=== PATIENT | female | born 1980 | race Caucasian/White ===

== ENCOUNTER 2019-05-10 08:28 | Inpatient (IN) ==
[2019-05-10 09:42] LABS: URINE SOURCE CLEAN CATCH
[2019-05-10 09:50] LABS: BASO# 0.02 X1000 (0.0-0.2); BASO% 0.1 % (0.0-0.8); HEMATOCRIT 44.6 % (37.0-47.0); HEMOGLOBIN 15.1 g/dL (12.0-16.0); IMM GRAN# 0.05 X1000 (0.0-0.04); IMM GRAN% 0.2 % (0.0-0.5); LYMPH# 1.15 X1000 (1.2-3.4); LYMPH% 5.6 % (20.5-51.1); MCH 32.6 PG (27-31); MCHC 33.9 g/dL (33-37); MCV 96.3 FL (81-99); MONO# 0.65 X1000 (0.11-0.59); MONO% 3.2 % (1.7-9.3); MPV 10.4 FL (7.4-10.4); NEUT# 18.65 X1000 (1.4-6.5); NEUT% 90.9 % (42.2-75.2); PLT 410 X1000 (130-400); RBC 4.63 XMIL (4.2-5.4); RDW 12.3 % (11.5-14.5); WBC 20.52 X1000 (4.8-10.8)
[2019-05-10 09:55] LABS: BILIRUBIN URINE NEGATIVE (NEGATIVE); BLOOD URINE NEGATIVE (NEGATIVE); COLOR YELLOW; GLUCOSE URINE NEGATIVE (NEGATIVE); KETONE URINE 40 mg/dL (NEGATIVE); LEUKOCYTES URINE NEGATIVE (NEGATIVE); NITRITE URINE NEGATIVE (NEGATIVE); PH URINE 8.5; PROTEIN URINE TRACE mg/dL (NEGATIVE); SP GRAVITY URINE 1.024; TURBIDITY URINE CLEAR (CLEAR); UROBILINOGEN URINE NORMAL (NORMAL)
[2019-05-10 09:57] LABS: UR EPITHELIAL CELLS <10 /HPF (<10); URINE BACTERIA NEGATIVE /HPF; URINE WBC <10 /HPF (<10)
--- NOTE | 2019-05-10 10:05 | PROVIDER DOCUMENTATION ---
HPI-Abdominal Pain/GI Problem - General Chief Complaint: Abdominal Pain Stated Complaint: RT FLANK PAIN Time Seen by Provider: 05/10/19 08:54 Source: patient Allergies/Adverse Reactions: Patient Allergies Allergy/AdvReac Type Severity Reaction Status Date / Time Penicillins Allergy RASH Verified 05/10/19 09:45 Home Medications: Home Medication List Medication Instructions Recorded Confirmed Last Taken Type Levothyroxine [Synthroid] 50 microgm PO DAILY 05/10/19 05/10/19 Unknown History Sertraline [Zoloft] 50 mg PO DAILY 05/10/19 05/10/19 Unknown History - History of Present Illness-ABD Nature of Presenting Problems: Patient is a 39yo F who presents with complaints of sudden onset RLQ abdominal pain, nausea, and vomiting x1 that awoke her from sleep at 0100 this morning. Reports she attempted to have a BM hoping to improve her pain, but it did not. States 2 softs BMs this AM. Denies fever, dysuria, vaginal discharge, or hematuria. Reports 1 past laparoscopic exploratory abdominal surgery. Non-toxic in appearance. Abdominal Pain Onset Location: reports: RLQ Pain Radiation: reports: no radiation Quality of Pain: reports: pressure Severity in ED: reports: moderate Onset/Duration: reports: abrupt, this afternoon Timing: reports: still present Activities at Onset: reports: sleep Exposure to sick contacts?: No Modifying Factors: improves with: nothing. worse with: movement, palpation Associated Symptoms: reports: nausea, vomiting (x1). denies: back/neck pain, chest pain, constipation, diarrhea, fever/chills, genitourinary problems, shortness of breath Last BM: this morning (x2 soft) Dark Stools Present?: reports: none noticed Rectal Bleeding: reports: none # of Diarrhea Episodes: 0 # of Vomiting Episodes: 1 Emesis Description: reports: clear, other Bruising or Bleeding Gums?: No Similar Symptoms Previously?: No Recently seen or treated by another doctor?: No Review of Systems - Adult - REVIEW OF SYSTEMS - ADULT Constitutional: reports: no symptoms reported. denies: chills, fever Eyes: reports: no symptoms reported Ears, Nose, Mouth & Throat: reports: no symptoms reported Cardiovascular: reports: no symptoms reported. denies: chest pain, palpitations Respiratory: reports: no symptoms reported. denies: cough, shortness of breath Gastrointestinal: reports: see HPI, abdominal pain, nausea, vomiting. denies: diarrhea Genitourinary: reports: no symptoms reported. denies: dysuria, discharge Musculoskeletal: reports: no symptoms reported. denies: back pain Integumentary: reports: no symptoms reported Neurological: reports: no symptoms reported Psychiatric: reports: no symptoms reported Endocrine: reports: no symptoms reported Past History - Adult - PAST MEDICAL HISTORY-ADULT Review of Records: reports: Nursing Assessment Review, Medications Reviewed, Social history reviewed & non-contributory. - IMMUNIZATION STATUS Childhood Immunizations: See Nurse Assessment Flu Vaccine: See Nurse Assessment - FAMILY HISTORY Family History: reviewed, not pertinent - SOCIAL HISTORY Smoking: denies, non-smoker Physical Exam-General - PHYSICAL EXAM-ADULT Initial Vital Signs Reviewed: Yes - CONSTITUTIONAL General Appearance: alert, mild distress. negative: lethargic, slow to respond, obtunded - EYES Eyes: PERRL/EOMI, pink conjunctivae. negative: EOM palsy, scleral icterus - HEAD, EARS, NOSE, MOUTH & THROAT HENMT: normocephalic/atraumatic, moist mucous membranes. negative: angioedema - NECK Neck: full range of motion, supple, normal inspection - RESPIRATORY Respiratory: chest non-tender, lungs clear, normal breath sounds, no pleuratic chest pain, no respiratory distress, no accessory muscle use. negative: crac kles, rales, rhonchi, stridor, wheezing - CARDIOVASCULAR Cardiovascular: no gallop, tachycardia (104) - GASTROINTESTINAL (ABDOMEN) Abdominal Exam: soft, no pulsatile mass, abnormal bowel sounds (hypoactive x4), tenderness (RLQ), McBurney's point tenderness, Rovsing's sign. negative: guarding, rigid - MUSCULOSKELETAL Back Exam: normal inspection Extremity: normal range of motion, non-tender, normal gait, normal inspection - SKIN Integumentary: normal color, warm/dry. negative: cyanosis, jaundice, pallor - NEUROLOGIC Neurologic: grossly normal. negative: aphasia, EOM palsy - PSYCHIATRIC Psych/Mental Status: normal mood/affect, normal thought content, normal thought process, oriented x 3 Progress - PLAN OF CARE/RESULTS Progress/Plan/Lab Results: Vital Signs - 8 hr 05/10/19 08:33 Temperature 97.6 F Pulse Rate 104 H Respiratory Rate 20 Blood Pressure 130/90 O2 Sat by Pulse Oximetry 99 Bedside Urine ED: Urine Bedside Start: 05/10/19 08:56 Freq: ORDERED Status: Active Protocol: Activity Type Activity Date Activity User E-Sign Co-Sign Detail Recorded Client Recorded Date Recorded By Document 05/10/19 09:37 [id number] 05/10/19 09:38 [id number] 05/10/19 09:37 Point of Care [Bedside Point of Care] -Lot # [id number] - Results Negative -Control Line Visible? Yes -Additional Comment EXP: 10/10/20 Laboratory Results - last 24 hr 05/10/19 05/10/19 09:15 09:28 WBC 20.52 H RBC 4.63 Hgb 15.1 Hct 44.6 MCV 96.3 MCH 32.6 H MCHC 33.9 RDW Std Deviation 12.3 Plt Count 410 H MPV 10.4 Immature Gran % (Auto) 0.2 Neut % (Auto) 90.9 H Lymph % (Auto) 5.6 L [place] % (Auto) 3.2 Eos % (Auto) 0.0 Baso % (Auto) 0.1 Immature Gran # (Auto) 0.05 H Neut # (Auto) 18.65 H Lymph # (Auto) 1.15 L [place] # (Auto) 0.65 H Eos # (Auto) 0.00 Baso # (Auto) 0.02 Urine Source CLEAN CATCH Urine Color YELLOW Urine Turbidity CLEAR Urine pH 8.5 Ur Specific [place] 1.024 Urine Protein TRACE A Ur Glucose (Stick) NEGATIVE Ur Ketones (Stick) 40 A Urine Blood NEGATIVE Urine Nitrite NEGATIVE Urine Bilirubin NEGATIVE Urobilinogen Dipstick NORMAL Urine Leukocytes NEGATIVE Urine WBC (Auto) <10 Urine RBC (Auto) 10-20 A U Epithel Cells (Auto) <10 Urine Bacteria (Auto) NEGATIVE Orders Category Date Time Status ED: Urine Bedside ORDERED Care 05/10/19 08:56 Active Saline Loc NOW Care 05/10/19 08:55 Active CBC WITH ELECTRONIC DIFF [HEME] Stat Lab 05/10/19 09:28 Completed COMPREHENSIVE METABOLIC PANEL [CHEM] Stat Lab 05/10/19 09:28 Received LIPASE [CHEM] Stat Lab 05/10/19 09:28 Received URINALYSIS W/POSS RFLX CULT [URINALYSIS] Stat Lab 05/10/19 09:[address] Casarez recommends Cefepime as patient is Penicillin allergic. Lab results, imaging results, need for admission/surgery discussed with patient who agrees with and verbalizes understanding. Result Diagrams: 05/10/19 09:28 05/10/19 09:28 - EKG 1 Time of EKG reading by physician:: 12:02 EKG Read and Signed by:: Diaz Casarez EKG Interpretation (*Must complete 3 of following elements*): Normal Rate: 67 Rhythm: NSR [place]: normal QRS: normal GA Interval: normal ST Wave: normal - CT/MRI 1 CT Study: Abdomen, Pelvis Impression: See EMR Report ([facility] - [address] [facility], [address] [address] [facility] - [address] [place] [address] Department of Imaging Patient: BALTAZAR BUSTAMANTE AADM Date: 05/10/19MR#: [id number] : 1980ADM Status: REG [facility]#: [id number] Age/Sex: 39/FRoom/Bed: Loc: ED Ordering Physician: Sharmin Kilgore Family Physician: Armando Larios Reason for Procedure: RLQ abdominal pain; leukocytosis Signed CT ABD/PELVIS W/IV CONT ONLY - 05/10/2019 INDICATION: RLQ abdominal pain; leukocytosis COMPARISON: None FINDINGS: The lung bases are clear and the heart size is normal. The liver, gallbladder, spleen, pancreas, adrenals, and kidneys are normal. There is diffuse enlargement of the vermiform appendix which measures over 12 mm. There is also some slight surrounding inflammatory stranding. No free air or free fluid. No bowel obstruction. No significant constipation. There is an IUD in the uterus in good position. Urinary bladder and rectum are normal. Bones are intact and well mineralized. IMPRESSION: Findings compatible with acute appendicitis. No complication. This report was discussed with Sharmin Isabel on 05/10/2019 at 11:55 AM and was readback. This exam was performed using automated exposure control, adjustment of mA or kV according to patient size, and/or use of iterative reconstruction technique Electronically signed by Chris Whitley 05/10/2019 11:56 AM 05/10/19 1156 Interpreting Physician: Chris Whitley MD Dictated Date/Time: 05/10/19 1153 cc: Sharmin Isabel; Armando Larios) - CONSULTS/PCP/HOSPITALIST Notification #1 *Consult/PCP/Hospitalist*: Renetta Surgeon Time Discussed: 12:00 (Dr. Casarez spoke with) Reason/Comments: Acute appendicitis Consult Disposition: Will see in ED, Admit Departure - Departure Date of Disposition Decision: 05/10/19 Time of Disposition Decision: 12:00 DIAGNOSIS: Acute appendicitis Qualifiers: Acute appendicitis type: unspecified acute appendicitis type Qualified Code(s): K35.80 - Unspecified acute appendicitis Disposition: ADMITTED INPATIENT 09 Certified Medical Emergency: Emergent Condition: Stable - Critical Care Note This patient required my direct & personal management of CC.: No Attestation - Physician/ GRACIE Attestation Patient care was provided by Advanced Practice Provider:: Yes Advanced Practice Provider:: Sharmin Isabel Advanced Practice Provider documentation review:: The Mid-level provider documentation, treatment plan and medical decision making was reviewed by the physician who agrees with all treatment and medical decision making by the P. The physician spent face to face time with patient:: No Advanced Practice Provider documentation review:: Supervising physician onsite and consulted in the evaluation and care of this patient. The physician did not have a face to face encounter with the patient.
[2019-05-10] MEDS ORDERED: NS 1,000 ML IV ONE ×2 (10:06→11:59)
[2019-05-10] MEDS ORDERED: TORADOL IV ONE (10:06)
[2019-05-10] MEDS ORDERED: ZOFRAN IV ONE (10:09)
[2019-05-10 10:18] LABS: AGAP 15; ALB/GLOB RATIO 1.4; ALBUMIN 4.4 g/dL (3.5-5.0); ALKALINE PHOSPHATASE 50 U/L (32-104); BUN 13 mg/dL (8-22); CALCIUM 9.3 mg/dL (8.8-10.2); CHLORIDE 100 mmol/L (98-107); COSMO 281; CREATININE 0.8 mg/dL (0.5-0.9); ESTIMATED GFR > 60; GLUCOSE 120 mg/dL (70-104); GOT 16 U/L (10-30); GPT 16 U/L (10-36); LIPASE 12 U/L (13-60); POTASSIUM 3.8 mmol/L (3.5-5.1); SODIUM 140 mmol/L (136-145); TCO2 25 mmol/L (25-35); TOTAL BILIRUBIN 0.52 mg/dL (0.20-1.00); TOTAL PROTEIN 7.5 g/dL (6.3-8.3)
[2019-05-10] MEDS ORDERED: MAXIPIME 1 GM in NS 50 ML IV ONE (11:58)
[2019-05-10] MEDS ORDERED: MORPHINE IV ONE (11:58)
--- NOTE | 2019-05-10 11:58 | Diag Imaging Result Doc PS360 ---
CT ABD/PELVIS W/IV CONT ONLY - 05/10/2019 INDICATION: RLQ abdominal pain; leukocytosis COMPARISON: None FINDINGS: The lung bases are clear and the heart size is normal. The liver, gallbladder, spleen, pancreas, adrenals, and kidneys are normal. There is diffuse enlargement of the vermiform appendix which measures over 12 mm. There is also some slight surrounding inflammatory stranding. No free air or free fluid. No bowel obstruction. No significant constipation. There is an IUD in the uterus in good position. Urinary bladder and rectum are normal. Bones are intact and well mineralized. IMPRESSION: Findings compatible with acute appendicitis. No complication. This report was discussed with Sharmin Isabel on 05/10/2019 at 11:55 AM and was readback. This exam was performed using automated exposure control, adjustment of mA or kV according to patient size, and/or use of iterative reconstruction technique Electronically signed by Chris Whitley 05/10/2019 11:56 AM
--- NOTE | 2019-05-10 13:07 | EKG Report ---
Test Performed on : 05/10/2019 12:48:16 PM Test Reason : Pre-op Blood Pressure : / mmHG Vent. Rate : 067 BPM Atrial Rate : 067 BPM P-R Int : 172 ms QRS Dur : 086 ms QT Int : 410 ms P-R-T Axes : -21 025 004 degrees QTc Int : 433 ms Normal sinus rhythm. Normal ECG No previous ECGs available Unconfirmed Result
[2019-05-10 13:25] LABS: INR 0.93; PROTIME 12.5 Seconds (11.0-16.0)
[2019-05-10 13:26] LABS: PTT 26.4 Seconds (22.3-41.8)
[2019-05-10] MEDS ORDERED: FENTANYL ONE (15:55)
[2019-05-10] MEDS ORDERED: DIPRIVAN 1% ONE (15:55)
[2019-05-10] MEDS ORDERED: QUELICIN (DOSE) ONE (15:55)
[2019-05-10] MEDS ORDERED: ROBINUL ONE ×2 (15:55→18:22)
[2019-05-10] MEDS ORDERED: XYLOCAINE-MPF 2% ONE ×2 (15:55→18:24)
[2019-05-10] MEDS ORDERED: ZEMURON ONE (15:55)
[2019-05-10] MEDS ORDERED: VERSED ONE ×2 (15:56→17:07)
[2019-05-10] MEDS ORDERED: ZOFRAN ONE (17:16)
[2019-05-10] MEDS ORDERED: DECADRON ONE (17:16)
[2019-05-10] MEDS ORDERED: LR 1,000 ML ONE (17:28)
[2019-05-10] MEDS ORDERED: SENSORCAINE 0.5%-EPI 1:200,000 ONE (17:28)
[2019-05-10] MEDS ORDERED: LEVAQUIN 500 MG/D5W 500 MG/100 ML IVPB ONE (17:29)
[2019-05-10] MEDS ORDERED: NEOSTIGMINE ONE (17:52)
[2019-05-10] MEDS ORDERED: DEMEROL ONE (18:43)
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
--- NOTE | 2019-05-10 21:21 | OPERATIVE NOTE ---
PROCEDURE DATE: 05/10/2019 PREOPERATIVE DIAGNOSIS: Acute appendicitis without rupture. POSTOPERATIVE DIAGNOSIS: Acute appendicitis without rupture. PRINCIPAL PROCEDURE: Laparoscopic appendectomy. SURGEON: Lelo Jackson MD. ANESTHESIA: General in addition to local anesthetic. ESTIMATED BLOOD LOSS: 50 mL. DRAINS: None. INDICATIONS: Jenn Cabrera is a 39-year-old white female who had a 12-18 hour history of abdominal pain localized to her right lower quadrant. She presented to our emergency department. Part of her evaluation was a CT scan of her abdomen which suggested acute appendicitis as did her exam, and we were asked to see her. FINDINGS: The appendix was acutely inflamed, swollen but not ruptured there was no free intra- abdominal infection. No other intra-abdominal pathology was noted. We felt we did the operation safely. DESCRIPTION OF PROCEDURE: The patient was brought to the operating room, placed supine, received general anesthesia and was intubated. A Villafana catheter tube was placed. Her abdomen was prepped and draped in a sterile field. She received IV Levaquin prior to surgery. We made a small incision below her umbilicus with a 15 blade scalpel. A Veress needle was introduced intra- abdominally. Pneumoperitoneum was established. I used step trocars. I placed 11 mm step trocar through this incision into the abdomen. The camera was placed through this port, and the abdomen was explored for injury, there was none. I placed 2 other trocars under direct vision the camera. I placed a 12 mm trocar through a small transverse incision in the suprapubic area under direct vision of the camera and I placed a 5 mm trocar right lower quadrant of the abdomen, again under direct vision the camera. The camera was at the umbilicus. I used a grasper and dissector at our lower trocar sites. The appendix was easily visualized and mobilized. I used a gold load Endo- ROLAND to come across the appendiceal mesentery. I used a reload of this Endo ROLAND to come across the base of the appendix. I used an endobag to remove the appendix through our 12 mm port site. I placed the port back through this incision and the area of operation was thoroughly inspected, irrigated, and the irrigation was removed with suction. There was no evidence of bleeding and we were happy with the appendiceal stump. No drains were left. All trocars removed under direct vision the camera. The pneumoperitoneum was allowed to dissipate. I used [id number] 2-0 Vicryl stitches to reapproximate the fascia at the umbilicus and suprapubic incisions. All skin was closed with 4-0 Monocryl subcuticular stitches. Steri-Strips were applied. Plans are to remove her Villafana catheter tube, send her to recovery room and she will be admitted overnight. cc: Lelo Jackson MD
[2019-05-11] MEDS ORDERED: SODIUM CHLORIDE 0.9% INJ PRN (00:04)
[2019-05-11] MEDS ORDERED: PHENERGAN IV PRN (00:04)
[2019-05-11] MEDS ORDERED: LR 1,000 ML IV SCH (00:15)
[2019-05-11] MEDS: NORCO-10 PO PRN ×2 (01:05→11:48)
[2019-05-11] MEDS: MOTRIN PO SCH ×2 (06:24→13:54)
[2019-05-11] MEDS: TYLENOL PO SCH ×2 (10:26→16:10)
--- NOTE | 2019-05-11 14:25 | DISCHARGE SUMMARY ---
ADMISSION DATE: 05/10/2019 DISCHARGE DATE: 05/11/2019 ADMITTING DIAGNOSIS: Acute appendicitis without rupture. DISCHARGE DIAGNOSIS: Acute appendicitis without rupture. PRINCIPAL PROCEDURE: Laparoscopic appendectomy 05/10/2019. DISCHARGE DIET: Liquids. DISCHARGE DISABILITIES: Full. DISCHARGE MEDICATIONS: She is to return to her home medications. DISCHARGE DISPOSITION: She will return to our outpatient office in 7 to 10 days for followup. HOSPITAL COURSE: Ms. Jenn Cabrera is a 39-year-old, white female who presented to our emergency department yesterday with a 12-18 hour history of abdominal pain which had localized to her right lower quadrant. As part of her evaluation, she underwent a CT scan of her abdomen and pelvis which suggested acute appendicitis, as did her exam. Later that afternoon she went to the operating room, underwent a laparoscopic appendectomy for acute appendicitis without rupture. We felt the operation went well. No drains were left. After surgery she went to the recovery room and then was hospitalized on the [address] [place] [address] Torres. On postop day 1, she was awake and tolerating liquids. She had some soreness from her trocar sites but clinically she was improved and it was felt safe to discharge her home under the care of her family with followup in our outpatient offices in 7 to 10 days. DISCHARGE EXAMINATION: At discharge, her heart rate was 60, blood pressure 101/66, O2 saturation 100%. She had no work of breathing. She was afebrile she received IV Zosyn prior to surgery. Her trocar sites were intact. She was able to ambulate in the room. DISCHARGE INSTRUCTIONS: She knows to contact me with any problems such as increasing abdominal pain, fever, nausea and vomiting. I will give her some pain medicine at discharge. cc: Lelo Jackson MD
[2019-05-11 16:42] VITALS: BP 108/64
== END 2019-05-11 18:22 | disposition home or self-care (01) | DRG 343 ==
LOC: ED 08:28 → 4N 08:29
PROVIDERS: ADMIT Surgery; ATTEND Surgery